=== PATIENT | male | born 1945 | race Caucasian/White ===

== ENCOUNTER → 2016-04-20 | Outpatient (CLI) | payer OTHER ==
[~2016-04-20] MED LIST: ASPIRIN 32325 MG/TAB PO; BISOPROLOL5 MG PO; GOOD SENSE ASPI81 M1 PO; HYDROCHLOROTHIA1 T14 PO; SINGULAIR PO; SOTALOL HYDROCH80 MG PO; ZIAC 2.5 MG-6.21 TAB PO; ZOCOR20 MG PO
== END ==
LOC: LAB 18:35
DX: R50.81 Fever presenting with conditions classified elsewhere (principal); R30.0 Dysuria